=== PATIENT | male | born 1945 | race Caucasian/White ===

== ENCOUNTER → 2018-02-12 | Day surgery (SDC) | payer MEDICARE, OTHER ==
[~2018-02-12] MED LIST: ASPI81CH5; BUPIVACAINE/EPINEPHRINE 0.5% PF 10 ML VIAL ONE; LACTATED RINGER'S 1000 ML INJ 1,000 ML ONE; LIDOCAINE 1%/EPINEPHrine 1:100,000 SOLN 50 ML VIAL ONE; MIDAZOLAM HCL 2 MG/2 ML VIAL ONE; PROPOFOL 500 MG/50 ML BTL IV ONE; ROPI.25
--- NOTE | 2018-02-12 11:50 | TN ---
cc: Tahir Munson MD, Humayun A MD DATE OF SURGERY: 02/12/2018 PREOPERATIVE DIAGNOSIS: Left neck mass in the anterior cervical triangle. POSTOPERATIVE DIAGNOSIS: Left neck mass in the anterior cervical triangle. PROCEDURE PERFORMED: Excision of left neck mass with a 3 x 8 cm elliptical incision. ANESTHESIA: TIVA. SURGEON: Tahir Munson MD. INDICATIONS: This is a pleasant gentleman who has a neck mass on the left side that appears to be in the skin and subcutaneous area. Plans were made for removal. PROCEDURE: The patient taken to the operating room, placed in the supine position. After TIVA anesthesia, his left neck was prepped with Betadine. He was given preoperative antibiotics. We make an elliptical incision measuring 3 x 8 cm, dissect down to the deep subcutaneous tissue right down to the sternocleidomastoid muscle avoiding the cutaneous nerves. The specimen was then removed. We marked it with a stitch at the 12 o'clock position. We then are able to close the deep layers with 3-0 Vicryl and skin was reapproximated with a running 4-0 Vicryl. Steri-Strips were applied. A sterile bandage was applied. The patient tolerated it well and had no immediate postop complications. Tahir Munson MD JDB/DL , 11:39 AM , 11:49 AM
== END | disposition home or self-care (01) ==
LOC: ESDC 08:29
PROVIDERS: ATTEND Surgery
DX: L72.0 Epidermal cyst (principal)
CPT/HCPCS: 00300; 11426; 88304; J2250; J3010; J7120; 88305

== ENCOUNTER → 2018-03-27 | Day surgery (SDC) | payer MEDICARE, OTHER ==
[~2018-03-27] MED LIST changes: -BUPIVACAINE/EPINEPHRINE 0.5% PF 10 ML VIAL ONE; -LIDOCAINE 1%/EPINEPHrine 1:100,000 SOLN 50 ML VIAL ONE; +PROPOFOL 200 MG/20 ML AMP IV ONE; -PROPOFOL 500 MG/50 ML BTL IV ONE; +ceFAZolin 2 GM PREMIX 50 ML ONE
--- NOTE | 2018-03-27 11:05 | TN ---
cc: Tahir Munson MD, Joseph D MD DATE OF SURGERY: 03/27/2018 PREOPERATIVE DIAGNOSIS: Inflamed sebaceous cyst, left posterior shoulder/back. POSTOPERATIVE DIAGNOSIS: Inflamed sebaceous cyst, left posterior shoulder/back. PROCEDURE PERFORMED: Wide radical excision of a sebaceous inclusion cyst with a 9 x 5 cm elliptical incision with double layer closure. ANESTHESIA: General. SURGEON: Dr. Munson INDICATIONS FOR PROCEDURE: This is a pleasant 72-year-old gentleman who has an inflamed sebaceous cyst on his back. He has been given antibiotics with some resolution of it. Plans were made for excision of the offending lesion. PROCEDURE: The patient was taken to the operating room, placed in supine position. After anesthesia, timeout is done. The area was prepped with Betadine. Preoperative antibiotics were given. An elliptical incision measures 9 x 5 cm. It was done after anesthetizing with Marcaine solution. I sharply debrided about 3 cm deep to excise the specimen completely without violating the capsule of the inflamed sebaceous cyst. We then irrigated copiously. Flaps were created superiorly and inferiorly. This skin flap and defect were then closed with double-layer closure with a 2-0 Vicryl in the deep layer and then 3-0 nylon interrupted at the skin level. Sterile bandage applied. The patient tolerated the procedure well, had no immediate postop complications. Tahir Munson MD JDB/DL , 10:39 AM , 11:04 AM
== END | disposition home or self-care (01) ==
LOC: ESDC 07:35
PROVIDERS: ATTEND Surgery
DX: L72.3 Sebaceous cyst (principal)
CPT/HCPCS: 00300; 11406; 12034; 88304; J0690; J2250; J7120